=== PATIENT | female | born 1945 ===

== ENCOUNTER → 2016-09-22 | Outpatient (CLI) | payer MEDICARE ==
[~2016-09-22] VITALS: Ht 160 cm; Wt 69.0 kg
[~2016-09-22] MED LIST: AMLO-511 PO; FAMO20 PO; FLUO-191 PO; HYDR25 PO; LISI-662 PO; METF500T4 PO; METO25 PO
[2016-09-22 09:00] VITALS: BP 120/72
== END | disposition home or self-care (01) ==
LOC: SRCNTR 08:49
PROVIDERS: ATTEND Orthopaedic Surgery
DX: M25.551 Pain in right hip (principal); R26.2 Difficulty in walking, not elsewhere classified; I63.9 Cerebral infarction, unspecified
CPT/HCPCS: G0463